=== PATIENT | male | born 1975 | race African-American/Black ===

== ENCOUNTER 2024-05-01 07:10 | Day surgery (SDC) | payer MEDICARE, SELFPAY ==
[2024-04-28 14:42] VITALS: BMI 24.8
[2024-05-01] VITALS (12 sets, daily range): BP systolic 141–183; BP diastolic 88–113; PULSE 50–83; RESP 12–18; TEMP 36.2–37.1; O2SAT 95–100; BMI 24.5
[2024-05-01] MEDS: DiphenhydrAMINE INJ 50 MG/ML VIAL 25 MG IV (10:17)
[2024-05-01] MEDS: hydrALAZINE INJ 20 MG/ML VIAL 10 MG IV ×2 (10:20→10:35)
[2024-05-01] MEDS: fentaNYL CIT INJ 50 mCg/ML AMP 2ML (ASD USE ONLY) IV (10:22)
[2024-05-01] MEDS: ONDANSETRON INJ 2 MG/ML INJ 2 ML 4 MG IV (10:26)
[2024-05-01] MEDS: MEPERIDINE INJ 25 MG/ML VIAL (ASD USE ONLY) IV (10:26)
[2024-05-01] MEDS: MIDAZOLAM INJ 1 MG/ML VIAL 2 ML (ASD USE ONLY) 2 MG IV (10:35)
== END 2024-05-01 11:40 | disposition home or self-care (01) ==
PROVIDERS: PCP Internal Medicine; Referring Provider Specialist; Visit Provider Specialist
PROC: 0DBE8ZX Excision of Large Intestine, Via Natural or Artificial Opening Endoscopic, Diagnostic (ICD-10-PCS; CPT 45380; principal; 2024-05-01 08:30)
DX: Z12.11 Encounter for screening for malignant neoplasm of colon (principal); K57.30 Diverticulosis of large intestine without perforation or abscess without bleeding; K64.9 Unspecified hemorrhoids
CPT/HCPCS: 45378; J0360; J1200; J2175; J2250; J2405; J3010

== ENCOUNTER → 2024-06-16 | Outpatient (CLI) | payer MEDICARE, SELFPAY ==
--- NOTE | 2024-06-16 13:30 | XR_ITS ---
MRI shoulder, right, without contrast. Date and time: August 14, 2024 1453 hours INDICATIONS: Right shoulder pain beginning January 2024 Technique: Multiple axial, sagittal and coronal sections of the shoulder have been obtained. Siemens high-resolution 1.5 [employer] MRI scanner is utilized. Axial fat-suppressed sections, TR 2350, TE 18 T2-weighted coronal fat-saturated images, TR 3500, TE 7100 T1-weighted coronal images, TR 500, TE 15 T2-weighted sagittal fat-saturated images, TR 3500, TE 57 T1-weighted sagittal sections, TR 504, TE 13. Findings: 5 cm full-thickness rotator cuff tear Subscapularis insertion is intact. Subscapularis bursa is small. Long head of the biceps is in the bicipital groove. No definite tear of the biceps superior labral anchor is seen. Retraction of the musculotendinous junction of the rotator cuff is evident. Tendinosis pattern is prominent. Distance between the acromium and humeral head is 4.5 mm Atrophy of the supraspinatus muscle is mild . Atrophy of the infraspinatus muscle is mild. Sagittal sections demonstrate a horizontal acromion. Acromioclavicular joint demonstrates prominent osteoarthritis. Osacromiale is not identified. Moderate osteoarthritis glenohumeral joint Fraying and irregularity anterior superior labral margins axial image 18. Bony glenoid fossa on the sagittal sections does not demonstrate osseous defect. Occult fracture or area of avascular necrosis is not seen. Acromioclavicular joint separation is not visible. Defect in the posterolateral margin of the humeral head is not seen Impression: Large full-thickness rotator cuff tear Fraying and irregularity anterior superior labral margins
== END | disposition home or self-care (01) ==
PROVIDERS: PCP Family Medicine; Referring Provider Family Medicine; Visit Provider Family Medicine
DX: M75.101 Unspecified rotator cuff tear or rupture of right shoulder, not specified as traumatic (principal); M25.811 Other specified joint disorders, right shoulder
CPT/HCPCS: 73221